=== PATIENT | female | born 1955 | race Caucasian/White ===

== ENCOUNTER 2016-10-28 19:03 | Emergency (ER) | payer OTHER ==
[2016-10-28 19:09] VITALS: BP 127/78
[2016-10-28] MEDS ORDERED: Tetan/Diph/Pertus SYR(Tdap)* 0.5 ML SYR(BOOSTRIX) use SYR IM ONE (19:41)
--- NOTE | 2016-10-28 20:11 | UC ---
Herb Contreras Alfonso, scribed for Kevon Osuna MD on 10/28/16 at 1935 . Laceration HPI - HPI Summary HPI Summary: This patient is a 61 year old F presenting to [facility] accompanied by with a chief complaint of scalp laceration which occurred at 1830 today. She states I hit my head on a kitchen door. The patient rates the pain 3/10 in severity. Symptoms aggravated by nothing. Symptoms alleviated by pressure and ice. PMHx of MS and hypothyroidism. Patients medications reviewed this visit. Patients allergies reviewed this visit. - History Of Current Complaint Chief Complaint: UCLaceration Stated Complaint: HEAD LACERATION Time Seen by Provider: 10/28/16 19:26 Hx Obtained From: Patient Laceration Location: Head - scalp Mechanism Of Injury: Blunt Trauma Onset/Duration: Sudden Onset, Lasting Minutes - 1830 Severity: Mild Pain Intensity: 3 Pain Scale Used: 0-10 Numeric Aggravating Factors: Nothing - Allergies/Home Medications Allergies/Adverse Reactions: Allergies Allergy/AdvReac Type Severity Reaction Status Date / Time No Known Allergies Allergy Verified 10/28/16 19:09 Home Medications: Home Medications Alendronate TAB (NF) [Fosamax TAB (NF)] 10 mg PO WEEKLY 10/28/16 [History Confirmed 10/28/16] PMH/Surg Hx/FS Hx/Imm Hx Endocrine History: Hypothyroidism Other Neurological History: MS - Surgical History Surgical History: Yes Surgery Procedure, Year, and Place: csection,DENTAL IMPLANT - Family History Known Family History: Negative: Cardiac Disease - Social History Alcohol Use: Rare Substance Use Type: None Smoking Status (MU): Never Smoked Tobacco - Immunization History Most Recent Tetanus Shot: UNSURE; THINKS UP TO DATE Review of Systems Constitutional: Negative Skin: Other - Scalp laceration. All Other Systems Reviewed And Are Negative: Yes Physical Exam Triage Information Reviewed: Yes Vital Signs: Initial Vital Signs Temp 95.8 F 10/28/16 19:06 Pulse 53 10/28/16 19:06 Resp 16 10/28/16 19:06 BP 127/78 10/28/16 19:06 Pulse Ox 100 10/28/16 19:06 Vital Signs Reviewed: Yes Eyes: Positive: Conjunctiva Clear ENT: Positive: Other: - There is a 4 cm superficial scalp laceration that is well approximated and not in need of closure. Neck exam: Normal Respiratory: Positive: Lungs clear, Normal breath sounds, No respiratory distress Cardiovascular: Positive: RRR, No Murmur Musculoskeletal: Positive: ROM Intact Neurological: Positive: Alert Psychological: Positive: Normal Response To Family Skin: Positive: Other - 4 cm scalp laceration Laceration Course/Dx - Course/Dx Course Of Treatment: 61 yr old female with 4 cm scalp laceration that is superficial. Will DC home in good condition. - Differential Dx - Laceration/Wound Provider Diagnoses: scalp laceration Discharge - Discharge Plan Condition: Good Disposition: HOME Patient Education Materials: Laceration (ED) Referrals: Lucie Marx MD [Primary Care Provider] - The documentation as recorded by the Herb delgadillo Alfonso accurately reflects the service I personally performed and the decisions made by Thao craft Walter, MD.
== END 2016-10-28 20:10 | disposition home or self-care (01) ==
LOC: UCEAST 19:03
DX: S01.01XA Laceration without foreign body of scalp, initial encounter (principal); W22.8XXA Striking against or struck by other objects, initial encounter; Y93.9 Activity, unspecified; Y92.000 Kitchen of unspecified non-institutional (private) residence as the place of occurrence of the external cause; E03.9 Hypothyroidism, unspecified; Z23 Encounter for immunization
CPT/HCPCS: 90471; 90715; 99211; G0010; G0463

== ENCOUNTER 2017-08-26 09:31 | Emergency (ER) | payer OTHER ==
[2017-08-26 09:48] VITALS: BP 167/104
[2017-08-26] MEDS ORDERED: Nitroglycerin TAB 0.4 MG* 0.4 MG TAB SL ONE (09:49)
[2017-08-26] MEDS ORDERED: Nitroglycerin TAB 0.4 MG* 0.4 MG TAB ONE (09:51)
[2017-08-26] MEDS ORDERED: Aspirin 81 mg CHEW TAB* 81 MG TAB.CHEW ONE (09:51)
[2017-08-26] MEDS ORDERED: NS 0.9% 1000 ML* 1,000 ML IV SCH (10:00)
[2017-08-26] MEDS ORDERED: Aspirin 81 mg CHEW TAB* 81 MG TAB.CHEW PO SCH (10:00)
--- NOTE | 2017-08-26 10:28 | UC ---
aJydon Contreras Gabriel, scribed for Enmanuel Segundo MD on 08/26/17 at 0952 . Cardiac HPI - HPI Summary HPI Summary: This patient is a 62 year old F presenting to [facility] [place] by her with a chief complaint of CP that began last night. The patient rates the pain 7 /10 in severity. Patient reports SOB and diaphoresis. Patient denies nausea, ABD pain, and LE pain. Pt states sx began after she ate a grapefruit. She states it felt like her typical GERD. She took tums last night with no relief and also nexium at 0500 this morning still with no relief. She reports it feeling like neck pain/tightness without radiation into her arms. Hx GERD and MS. No cardiac history or HTN. - History of Current Complaint Stated Complaint: HEART BURN Time Seen by Provider: 08/26/17 09:37 Hx Obtained From: Patient Onset/Duration: Lasting Days - 1, Still Present Timing: Constant Initial Severity: Severe Current Severity: Severe Pain Intensity: 7 Associated Signs & Symptoms: Positive: SOB, Diaphoresis - Allergy/Home Medications Allergies/Adverse Reactions: Allergies Allergy/AdvReac Type Severity Reaction Status Date / Time No Known Allergies Allergy Verified 08/26/17 10:09 PMH/Surg Hx/FS Hx/Imm Hx Endocrine History: Thyroid Disease Neurological History: Other Other Neurological History: MS Other History Of: Negative For: Anticoagulant Therapy - Surgical History Surgical History: Yes Surgery Procedure, Year, and Place: csection,DENTAL IMPLANT - Family History Known Family History: Negative: Cardiac Disease - Social History Lives: With Family Alcohol Use: Rare Substance Use Type: None Smoking Status (MU): Never Smoked Tobacco - Immunization History Most Recent Tetanus Shot: UNSURE; THINKS UP TO DATE Review of Systems Constitutional: Other - diaphoresis ENT: Other - neck pain Respiratory: Shortness Of Breath Cardiovascular: Chest Pain All Other Systems Reviewed And Are Negative: Yes Physical Exam - Summary Physical Exam Summary: General: well-appearing, mild pain distress Skin: warm, color reflects adequate perfusion, dry Head: normal Eyes: EOMI, ERIKA ENT: normal Neck: supple, nontender Respiratory: CTA, breath sounds present Cardiovascular: RRR Abdomen: soft, nontender Bowel: present Musculoskeletal: normal, strength/ROM intact Neurological: sensory/motor intact, A&O x3 Psychological: affect/mood appropriate Triage Information Reviewed: Yes Vital Signs: Initial Vital Signs Temp 96.8 F 08/26/17 09:34 Pulse 66 08/26/17 09:34 Resp 22 08/26/17 09:34 BP 167/104 08/26/17 09:34 Pulse Ox 98 08/26/17 09:34 Vital Signs Reviewed: Yes Diagnostics - EKG Cardiac Rate: NL - 0937 @ 61 BPM Cardiac Rhythm: Sinus: Normal - ST elevation anterior lead, flipped T wave in 3 Ectopy: None - Assessment/Plan Course Of Treatment: GIVEN ASA 324MG PO AND NTG SL IN CLINIC WITH DECREASED PAIN. CONTACTED ED, DR PEREZ VIEWED THE EKG. [facility]. - Clinical Impression Provider Diagnoses: CHEST PAIN Discharge - Sign-Out/Discharge Documenting (check all that apply): Discharge/Admit/Transfer - Discharge Plan Condition: Good Disposition: TRANS HIGHER LVL OF CARE FAC Referrals: Lucie Marx MD [Primary Care Provider] - - Billing Disposition and Condition Condition: GOOD Disposition: Trans Higher Lvl of Care Fac The documentation as recorded by the Jaydon delgadillo Gabriel accurately reflects the service I personally performed and the decisions made by me, Enmanuel Segundo MD.
== END 2017-08-26 10:02 | disposition short-term general hospital (02) ==
LOC: UCEAST 09:31
DX: R07.9 Chest pain, unspecified (principal)
CPT/HCPCS: 93005; 96360; 99213; A9270-GY; G0463

== ENCOUNTER 2017-08-26 10:22 | Inpatient (IN) | payer OTHER ==
[2017-08-26] MEDS ORDERED: Heparin for STEMI(*) 5,000 UNITS/ML 1 ML VIAL IV ONE ×2 (10:29→10:30)
[2017-08-26] MEDS ORDERED: Nitroglycerin TAB 0.4 MG* 0.4 MG TAB ONE (10:29)
[2017-08-26] MEDS ORDERED: Ticagrelor* 90 MG TAB PO ONE ×2 (10:30)
[2017-08-26] MEDS ORDERED: nitroGLYCERIN DRIP* 25,000 MCG in PREMIX* 0 ML IV ONE (10:30)
[2017-08-26] MEDS ORDERED: nitroGLYCERIN DRIP* 25,000 MCG/250 ML BTL ONE ×2 (10:30→10:45)
[2017-08-26] MEDS ORDERED: Nitroglycerin TAB 0.4 MG* 0.4 MG TAB SL ONE ×2 (10:32→10:34)
[2017-08-26] MEDS ORDERED: VERAPAMIL 2.5 MG/ML 2 ML VIAL ** 5 mg/2 ml ONE (10:44)
[2017-08-26] MEDS ORDERED: Heparin 2 UNITS/ML IVPREMIX* 2,000 ML IV ONE (10:44)
[2017-08-26] MEDS ORDERED: Heparin(*) 1000 UNIT/ML 10 ML VIAL CATH LAB IV ONE (10:44)
[2017-08-26] MEDS ORDERED: Iohexol 350 (CONTRAST) 200 ML MDV IV ONE (10:45)
[2017-08-26] MEDS ORDERED: Lidocaine 1% INJ* 10 MG/ML 30 ML SDV ONE (10:45)
[2017-08-26 10:57] LABS: ABS Basophils 0 10^3/ul (0-0.2); ABS Eosinophils 0.1 10^3/ul (0-0.6); ABS Lymphocytes 2.5 10^3/ul (1.0-4.8); ABS Monocytes 0.5 10^3/ul (0-0.8); ABS Neutrophils 3.1 10^3/ul (1.5-7.7); ABS Nucleated RBC 0 10^3/ul; Hematocrit 40 % (35-47); Hemoglobin 13.3 g/dl (12.0-16.0); Lymphocyte % 40.5 % (25-47); Mean Corpuscular HGB Conc 34 g/dl (31-36); Mean Corpuscular Hemoglobin 31 pg (27-31); Mean Corpuscular Volume 91 fL (80-97); Nucleated Red Blood Cells % 0; Platelet Count 322 10^3/ul (150-450); Red Blood Count 4.37 10^6/ul (4.00-5.40); Red Cell Distribution Width 13 % (10.5-15); White Blood Count 6.3 10^3/ul (3.5-10.8)
[2017-08-26] MEDS ORDERED: Midazolam* 1 MG/ML 10 ML VIAL (10 MG) ONE (10:59)
[2017-08-26] MEDS ORDERED: fentaNYL* 50 MCG/ML 2 ML VIAL (100 MCG VIAL) ONE ×2 (10:59→12:12)
[2017-08-26 11:18] LABS: INR 0.94 (0.77-1.02)
[2017-08-26 11:20] LABS: EGFR Non-African American 80.5 (>60)
[2017-08-26] MEDS ORDERED: NitroPRUSSide* 25 MG/ML 2 ML VIAL IVPB ONE (11:47)
[2017-08-26] MEDS ORDERED: Norepinephrine VIAL* 1 MG/ML 4 ML VIAL ONE (11:48)
[2017-08-26] MEDS ORDERED: Eptifibatide IV (Load dose)(*) 2 MG/ML 10 ml VIAL ONE (12:03)
[2017-08-26] MEDS ORDERED: NS 0.9% 1000 ML* 400 ML IV ONE (12:29)
[2017-08-26] MEDS ORDERED: Nitroglycerin TAB 0.4 MG* 0.4 MG TAB SL PRN (12:29)
[2017-08-26] MEDS ORDERED: Ondansetron INJ* 2 MG/ML VIAL IV PRN (12:29)
[2017-08-26] MEDS ORDERED: Zolpidem TAB* 5 MG PO PRN (12:29)
[2017-08-26 13:37] LABS: Urine Appearance Clear; Urine Blood Negative (Negative); Urine Color Straw; Urine Ketones Trace (Negative); Urine Protein Negative (Negative); Urine Specific Gravity > 1.060 (1.010-1.030); Urine Urobilinogen Negative (Negative)
--- NOTE | 2017-08-26 14:12 | ED ---
Louie Contreras Jacob, scribed for Liu Hall MD on 08/26/17 at 1119 . HPI Chest Pain - HPI Summary HPI Summary: Pt is a 62 y/o F brought in by EMS from [facility]. She states that she started to have a heavy feeling in her throat onsetting yesterday in the early evening. Today in the morning, she states that the pain moved to her chest. Pt describes chest as feeling heavy. She states that the pain progressively worsened throughout today and was rated 6/10 on triage. Per triage, she is experiencing heavy jaw pain and denies SOB and nausea. Pt took Tums and Nexium today. She was seen by EMS and sent to ED for EKG abnormality. Pt is A&Ox3, GCS is 15 on triage. [facility] provided 324 ASA and 1x nitro. Also at [facility], Pt was also given bolus of IV fluid in 20g IV in right wrist. Hx of GERD and MS. She denies Hx of CAD or HLD. FHx of CAD (father). - History of Current Complaint Time Seen by Provider: 08/26/17 10:23 Hx Obtained From: Patient Onset/Duration: Started Hours Ago, Still Present Current Severity: Moderate Pain Intensity: 6 Pain Scale Used: 0-10 Numeric - 6/10 Character: Heaviness Aggravating Factor(s): Nothing Alleviating Factor(s): Nothing Associated Signs and Symptoms: Positive: Chest Pain, Other: - heavy jaw pain. Negative: Shortness of Breath, Swelling - Allergy/Home Medications Allergies/Adverse Reactions: Allergies Allergy/AdvReac Type Severity Reaction Status Date / Time No Known Allergies Allergy Verified 08/26/17 10:09 Home Medications: Home Medications Alendronate Sodium [Fosamax-] 70 mg PO WEEKLY 08/26/17 [History Confirmed ] Esomeprazole(NF) [NEXium(NF)] 20 mg PO DAILY 08/26/17 [History Confirmed ] Interferon Beta-1A/Albumin [Avonex] 30 mcg IM WEEKLY 08/26/17 [History Confirmed 08/26/17] Levothyroxine TAB* [Synthroid TAB*] 25 mcg PO DAILY 08/26/17 [History Confirmed 08/26/17] PMH/Surg Hx/FS Hx/Imm Hx Endocrine/Hematology History: Reports: Hx Thyroid Disease - HYPOTHYROID Denies: Hx Diabetes Cardiovascular History: Denies: Hx Hypertension, Hx Pacemaker/ICD Respiratory History: Denies: Hx Asthma History: Denies: Hx Renal Disease Sensory History: Denies: Hx Hearing Aid Psychiatric History: Denies: Hx Panic Disorder - Surgical History Surgery Procedure, Year, and Place: csection,DENTAL IMPLANT Infectious Disease History: No Infectious Disease History: Denies: Traveled Outside the [place] in Last 30 Days - Family History Known Family History: Negative: Cardiac Disease - Social History Alcohol Use: Rare Substance Use Type: Reports: None Smoking Status (MU): Former Smoker Review of Systems Negative: Fever, Chills Negative: Erythema Negative: Sore Throat Positive: Chest Pain Negative: Shortness Of Breath, Cough Negative: Abdominal Pain, Vomiting, Nausea Negative: dysuria, hematuria Positive: Other - heavy jaw pain. Negative: Edema Negative: Rash Neurological: Other - NEGATIVE: dizziness All Other Systems Reviewed And Are Negative: Yes Physical Exam - Summary Physical Exam Summary: Constitutional: Well-developed, Well-nourished, Alert. (-) Distressed Skin: Warm, Dry HENT: Normocephalic; Atraumatic Eyes: Conjunctiva normal Neck: Musculoskeletal ROM normal neck. (-) JVD, (-) Stridor, (-) Tracheal deviation Cardio: Rhythm regular, rate normal, Heart sounds normal; Intact distal pulses; The pedal pulses are 2+ and symmetric. Radial pulses are 2+ and symmetric. (-) Murmur Pulmonary/Chest wall: Effort normal. (-) Respiratory distress, (-) Wheezes, (-) Rales Abd: Soft, (-), epigastric tenderness, (-) Distension, (-) Guarding, (-) Rebound Musculoskeletal: (-) Edema Lymph: (-) Cervical adenopathy Neuro: Alert, Oriented x3 Psych: Mood and affect Normal Triage Information Reviewed: Yes Vital Signs On Initial Exam: Initial Vitals Temp Pulse Resp BP Pulse Ox 97 F 60 18 167/90 100 08/26/17 10:24 08/26/17 10:24 08/26/17 10:24 08/26/17 10:24 08/26/17 10:24 Vital Signs Reviewed: Yes - Jovani Coma Scale Best Eye Response: 4 - Spontaneous Best Motor Response: 6 - Obeys Commands Best Verbal Response: 5 - Oriented Coma Scale Total: 15 Diagnostics - Vital Signs Vital Signs Temp Pulse Resp BP Pulse Ox 08/26/17 10:52 98.7 F 86 18 146/89 98 08/26/17 10:51 98.7 F 86 18 146/89 98 08/26/17 10:27 100 08/26/17 10:24 97 F 60 18 167/90 100 - Laboratory Lab Results: Lab Results 08/26/17 08/26/17 Range/Units 10:41 10:41 WBC 6.3 (3.5-10.8) 10^3/ul RBC 4.37 (4.00-5.40) 10^6/ul Hgb 13.3 (12.0-16.0) g/dl Hct 40 (35-47) % MCV 91 (80-97) fL MCH 31 (27-31) pg MCHC 34 (31-36) g/dl RDW 13 (10.5-15) % Plt Count 322 (150-450) 10^3/ul MPV 8.0 (7.4-10.4) um3 Neut % (Auto) 50.2 (38-83) % Lymph % (Auto) 40.5 (25-47) % [place] % (Auto) 7.8 H (0-7) % Eos % (Auto) 1.0 (0-6) % Baso % (Auto) 0.5 (0-2) % Absolute Neuts (auto) 3.1 (1.5-7.7) 10^3/ul Absolute Lymphs (auto) 2.5 (1.0-4.8) 10^3/ul Absolute Monos (auto) 0.5 (0-0.8) 10^3/ul Absolute Eos (auto) 0.1 (0-0.6) 10^3/ul Absolute Basos (auto) 0 (0-0.2) 10^3/ul Absolute Nucleated RBC 0 10^3/ul Nucleated RBC % 0 Blood Type A Positive Antibody Screen Pending Result Diagrams: 08/26/17 10:41 08/26/17 10:41 Lab Statement: Any lab studies that have been ordered have been reviewed, and results considered in the medical decision making process. 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 Today in the morning, she states that the pain moved to her chest, described as heavy, rated 6/10, progressively worsened throughout today. Per triage, she is experiencing heavy jaw pain and denies SOB and nausea. Pt took Tums and Nexium today. She was seen by EMS and sent to ED for EKG abnormality. Pt is A&Ox3, GCS is 15 on triage. [facility] provided 324 ASA and 1x nitro. Also at [facility], Pt was also given bolus of IV fluid in 20g IV in right wrist. During ED course, pt received Ticagrelor 180 mg PO, Heparin for STEMI, 4000 units, and NTG IV and SL. Bloodwork and EKG were ordered. EKG showed STEMI, APTT was >212.0 and Troponin I was 0.19 H. Pt was diagnosed with STEMI and admitted to [facility]. 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 Lee is currently catheterizing a Pt Time Discussed With Above Provider: 10:33 Instructed by Provider To: Other - Admitted - Critical Care Time Critical Care Time: 30-74 min - 45 minutes Discharge - Sign-Out/Discharge Documenting (check all that apply): Discharge/Admit/Transfer - admit - Discharge Plan Condition: Fair Disposition: ADMITTED TO [facility] documentation as recorded by the Louie delgadillo Jacob accurately reflects the service I personally performed and the decisions made by me, Liu Hall MD.
[2017-08-26] MEDS: Metoprolol Tartrate TAB* 25 MG PO SCH ×2 (16:07→21:18)
[2017-08-26] MEDS: Atorvastatin* 80 MG TAB PO SCH (16:08)
[2017-08-26] MEDS: Enoxaparin(*) 80 MG/0.8 ML SYR SUBCUT SCH (16:10)
[2017-08-26] MEDS ORDERED: Calcium Carbonate CHEW TAB* 500 MG (TUMS) PO PRN (21:02)
[2017-08-26] MEDS: CMC:Pantoprazole TAB (NF) 40 MG TAB PO SCH (21:20)
[2017-08-26] MEDS: Ticagrelor* 90 MG TAB PO SCH (21:21)
--- NOTE | 2017-08-26 21:29 | HP ---
CC: Dr. Marx; Marivel Lee MD HISTORY AND PHYSICAL: DATE OF ADMISSION: 08/26/17 PRIMARY CARE PHYSICIAN: Dr. Marx. HISTORY OF PRESENT ILLNESS: A 62-year-old woman presenting to the ER with acute anterior wall ST eliseo vation infarct. She has no previous cardiac history. Day prior to admission, she had discomfort in her throat in the evening, which persisted all night long. She thought it was due to reflux. This morning, she had t he same sore discomfort, but also developed the chest discomfort at around 0800 hours, it was very un comfortable. With it, she also had discomfort in her jaw, she presented to the ER. EKG at 0937 hour s showed J point and ST elevation in V2 through V4. Repeat EKG at 1021 showed a clearcut injury curr ent in V1 through V3. She has not had any exertional symptoms prior to presentation. She does have multiple sclerosis, whi ch limits her mostly by tingling and numbness in her fingers. PAST MEDICAL HISTORY: Multiple sclerosis, GERD, hypothyroidism. MEDICATIONS: Prehospital medications: 1. Synthroid 25 mcg daily. 2. Avonex 30 mcg IM weekly. 3. Nexium 20 mg daily. 4. Fosamax 70 mg weekly. She is not on aspirin. ALLERGIES: None to medications. SOCIAL HISTORY: She is . She is a nonsmoker. REVIEW OF SYSTEMS: General: No weight loss. No fevers. 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 GI: No p eptic ulcer disease or bleeding, she does not have aspirin intolerance. Heme: No history of maligna ncy or anemia. Circulatory: No history of claudication. Pulmonary: No cough. No hemoptysis. Rem ainder, all negative. PHYSICAL EXAMINATION VITAL SIGNS: When seen in the ER, BP 167/90, heart rate 60s. HEENT: Without xanthelasma, scleral injection, or jaundice, EOMs normal. Cranial nerves grossly int act. NECK: JVP and carotids normal. No bruits. LUNGS: Her lungs were clear. She was complaining of moderately severe chest pain. CARDIAC: [place] not palpable, regular rhythm, normal heart sounds, no gallop, murmur, or rub. ABDOMEN: Soft, nontender. No bruit, aorta not palpable. Liver not palpable. No ascites. Femoral pulses 2+. No bruits. EXTREMITIES: Radial pulses 2+. Pedal pulses 2+. No cyanosis, clubbing, or edema. PSYCH: Oriented and appropriate. SKIN: Warm and perfused. LABORATORY DATA: CBC unremarkable, BMP normal with creatinine 0.73, random blood sugar 142. IMAGING: EKG as above. IMPRESSION: Acute anterior wall ST elevation infarct, she underwent emergent catheterization. [id number]/[facility] #: [id number]
[2017-08-27] MEDS: Acetaminophen TAB* 325 MG PO PRN ×2 (03:49→23:37)
[2017-08-27 04:04] LABS: EGFR Non-African American 107.1 (>60)
[2017-08-27] MEDS: Metoprolol Tartrate TAB* 25 MG PO SCH ×4 (06:25→21:09)
[2017-08-27] MEDS: CMC:Pantoprazole TAB (NF) 40 MG TAB PO SCH (08:54)
[2017-08-27] MEDS: Aspirin 81 mg CHEW TAB* 81 MG TAB.CHEW PO SCH (08:54)
[2017-08-27] MEDS: Ticagrelor* 90 MG TAB PO SCH ×2 (08:54→21:09)
[2017-08-27] MEDS: Enoxaparin(*) 80 MG/0.8 ML SYR SUBCUT SCH (12:57)
[2017-08-27] MEDS: PTO: Dorzolamide/Timolol OPTH (NF) 10 ML BOT BOTH EYES SCH ×2 (13:45→21:11)
[2017-08-27] MEDS: Captopril TAB* 12.5 MG PO SCH ×2 (13:46→21:09)
[2017-08-27] MEDS: Atorvastatin* 80 MG TAB PO SCH (18:24)
[2017-08-28 06:41] LABS: EGFR Non-African American 92.1 (>60)
[2017-08-28] MEDS: Ticagrelor* 90 MG TAB PO SCH ×2 (08:16→19:48)
[2017-08-28] MEDS: Captopril TAB* 12.5 MG PO SCH ×4 (08:16→19:48)
[2017-08-28] MEDS: PTO: Dorzolamide/Timolol OPTH (NF) 10 ML BOT BOTH EYES SCH ×2 (08:17→19:51)
[2017-08-28] MEDS: Metoprolol Tartrate TAB* 25 MG PO SCH (08:17)
[2017-08-28] MEDS: Aspirin 81 mg CHEW TAB* 81 MG TAB.CHEW PO SCH (08:17)
[2017-08-28] MEDS: CMC:Pantoprazole TAB (NF) 40 MG TAB PO SCH (08:17)
[2017-08-28] MEDS: Metoprolol Tartrate TAB* 50 mg PO SCH ×2 (13:32→19:48)
[2017-08-28] MEDS: Enoxaparin(*) 80 MG/0.8 ML SYR SUBCUT SCH (13:32)
[2017-08-28] MEDS: Atorvastatin* 80 MG TAB PO SCH (17:18)
[2017-08-29] MEDS: Aspirin 81 mg CHEW TAB* 81 MG TAB.CHEW PO SCH (08:45)
[2017-08-29] MEDS: PTO: Dorzolamide/Timolol OPTH (NF) 10 ML BOT BOTH EYES SCH ×2 (08:45→22:29)
[2017-08-29] MEDS: Ticagrelor* 90 MG TAB PO SCH ×2 (08:45→22:24)
[2017-08-29] MEDS: CMC:Pantoprazole TAB (NF) 40 MG TAB PO SCH (08:45)
[2017-08-29] MEDS: Metoprolol Tartrate TAB* 50 mg PO SCH ×3 (08:45→22:24)
[2017-08-29] MEDS: Captopril TAB* 12.5 MG PO SCH (08:45)
--- NOTE | 2017-08-29 10:43 | ECHO ---
Patient: PADMINI MONTE [facility] Rec#: [id number] : 1955 Date: 08/29/2017 Age: 62y Height: 149.9 cm / 59.0 in Weight: 72.6 kg / 160.0 lbs Sex: F BSA: 1.7 Room#: 440 Admit Date#: 08/26/2017 Type: Inpatient Referring: Marivel Lee MD Reading: Simon Aguilar MD Electron Gun Inspector: Camila Padron RN RDCS CC: Lucie Marx MD Transthoracic Echocardiogram Indication: Anterior wall STEMI S/P PCI BP: 123/71 HR: 78 Rhythm: NSR Findings History: Multiple sclerosis, hypothyroidism, GERD, obesity Technical Comments: The study quality is fair. The study is technically limited due to patient body habitus. Left Ventricle: The left ventricular chamber size is normal. Septal wall hypertrophy is observed. There is increased basal septal hypertrophy noted without evidence of an increased gradient across the left ventricular outflow tract. There is a focal wall motion abnormality present. There is moderately decreased left ventricular systolic function. The estimated ejection fraction is 35-40%. Abnormal left ventricular diastolic filling is observed, consistent with impaired relaxation. The mid anterior, mid inferoseptal, apical anterior, and apical inferior wall segments are hypokinetic (score 2). The mid anteroseptal, and apical septal wall segments are akinetic (score 3). Overall wallmotion score index is 2.33 Left Atrium: The left atrial chamber size is normal. Right Ventricle: The right ventricle wall thickness is mildly increased. The right ventricular cavity size is normal. The right ventricular global systolic function is normal. Right Atrium: The right atrial cavity size is normal. Aortic Valve: The aortic valve is trileaflet. The aortic valve leaflets are mildly thickened. There is aortic annular calcification. There is a trace of aortic regurgitation. There is no evidence of aortic stenosis. Mitral Valve: The mitral valve leaflets are mildly thickened. There is mild mitral regurgitation. There is no evidence of mitral stenosis. Tricuspid Valve: The tricuspid valve leaflets are normal. There is mild tricuspid regurgitation. No pulmonary hypertension is noted. There is no tricuspid stenosis. Pulmonic Valve: The pulmonic valve appears normal. There is a trace pulmonic regurgitation. There is no pulmonic stenosis. Pericardium: There is no significant pericardial effusion. A pericardial fat pad is visualized. Aorta: There is no dilatation of the ascending aorta. There is no dilatation of the aortic arch. There is no dilation of the aortic root. Pulmonary Artery: The main pulmonary artery appears normal. Venous: The inferior vena cava appears normal in size. There is a greater than 50% respiratory change in the inferior vena cava dimension. Summary: There was not any prior study for comparison. Conclusions There is moderately decreased left ventricular systolic function. The estimated ejection fraction is 35-40%. The mid anterior, mid inferoseptal, apical anterior, and apical inferior wall segments are hypokinetic (score 2). The mid anteroseptal, and apical septal wall segments are akinetic (score 3). Abnormal left ventricular diastolic filling is observed, consistent with impaired relaxation. The right ventricular global systolic function is normal. There is a trace of aortic regurgitation. There is mild mitral regurgitation. There is mild tricuspid regurgitation. No pulmonary hypertension is noted. There is no significant pericardial effusion. Measurements Name Value Normal Range RVDdMajor (2D) 2.7 cm (2.2 - 4.4) RVAW (2D) 0.7 cm (0.2 - 0.5) RAd ISD 4CH 4 cm (3.4 - 4.9) RA (A4C)W 3.6 cm (2.9 - 4.6) IVSd (2D) 1.3 cm (0.6 - 1) LVPWd (2D) 0.9 cm (0.6 - 1) LVIDd (2D) 4 cm (3.6 - 5.4) LVIDs (2D) 2.3 cm - LV FS (2D) 42 % (25 - 45) Aortic Annulus 2.1 cm (1.4 - 2.6) Ao root diameter (2D) 3.1 cm (2.1 - 3.5) Ascending Ao 3.1 cm (2.1 - 3.4) Aortic arch 2.6 cm (1.8 - 3.4) LA dimension (AP) 2D 3.5 cm (2.3 - 3.8) LAd ISD 4CH 4.5 cm (2.9 - 5.3) LA ISD 4CH W 3.2 cm (2.5 - 4.5) Name Value Normal Range LA ESV SP 4CH (A/L) 25 ml - LA ESV SP 2CH (A/L) 30 ml - LA ESV BP (A/L) 27 ml - LA ESV BP (A/L) index 16.4 ml/m2 - LA ESV SP 4CH (MOD) 24 ml - LA ESV SP 2CH (MOD) 29 ml - Name Value Normal Range MV E-wave Vmax 0.58 m/sec - MV deceleration time 210 msec - MV A-wave Vmax 0.94 m/sec - MV E:A ratio 0.62 ratio - LV septal e' Vmax 0.05 m/sec - LV lateral e' Vmax 0.05 m/sec - LV E:e' septal ratio 11.6 ratio - LV E:e' lateral ratio 11.6 ratio - Name Value Normal Range AV Vmax 1.3 m/sec - AV VTI 29.8 cm - AV peak gradient 7.2 mmHg - AV mean gradient 4.3 mmHg - LVOT Vmax 0.97 m/sec - LVOT VTI 18.4 cm - LVOT peak gradient 3.8 mmHg - LVOT mean gradient 1.9 mmHg - NOEL Vmax 0.62 m/sec - Name Value Normal Range TR Vmax 2.2 m/sec - TR peak gradient 19 mmHg - RAP 3 mmHg - RVSP 22 mmHg - IVC diameter 1 cm - Name Value Normal Range PV Vmax 1.1 m/sec - Wallmotion BAS Not Seen BA Not Seen BAL Not Seen LESA Not Seen BI Not Seen BIS Not Seen MAS Akinetic MA Hypokinetic MAL Not Seen MIL Not Seen FL Not Seen MIS Hypokinetic Akinetic AA Hypokinetic AL Not Seen AI Hypokinetic APEX Hypokinetic
[2017-08-29] MEDS: Captopril TAB* 25 MG PO SCH ×2 (13:11→22:25)
[2017-08-29] MEDS: Enoxaparin(*) 80 MG/0.8 ML SYR SUBCUT SCH (13:11)
--- NOTE | 2017-08-29 14:04 | CATH ---
CC: Dr. Marx; Dr. Lee STENT REPORT: DATE OF PROCEDURE: 08/26/17 PRIMARY CARE PHYSICIAN: Dr. Marx. PROCEDURE: Right radial artery access, bilateral selective coronary cineangiography, left heart cath eterization, left ventriculography, stent placement LAD 2.5 x 12 Synergy drug-eluting stent, overlapp ing 2.5 x 38 Synergy drug-eluting stent, high pressure post dilatation. IC Nipride. HISTORY: A 62-year-old woman presenting with anterior ST-elevation infarct, has been symptomatic sin ce the prior evening. PROCEDURE ACCESS: Right radial artery sheath 6F slender. MEDICATIONS: 1. Subcu lidocaine. 2. IV Versed. 3. IV fentanyl. 4. Heparin and IV nitroglycerin started in ER. 5. Radial cocktail nitroglycerin 300 mcg, verapamil 3 mg IA. 6. Additional heparin 4000 units, 2000 units, 4000 units, IC nitroglycerin 200 mcg, IC Nipride 1000 mcg post revascularization. 7. Levophed boluses 64 mcg, 32 mcg for blood pressure support. 8. Double bolus IV Integrilin. DIAGNOSTIC CATHETER: 5F TIG4, guiding catheter 6 FLBU 3.5, wire 14 BMW. After diagnostic angiography, the LAD occlusion was approached. It was easily crossed with the BMW w jadiel. Predilatation with 2.5 x 12 mm balloon established patency, and demonstrated extensive multi-lo cation stenoses in the LAD. The most distal severe stenosis was then stented with a 2.5 x 12 Synergy drug-eluting stent 11 atmospheres 12 seconds, postdilated with a 2.5 x 12 NC balloon 16 atmospheres 30 seconds. A 2.5 x 38 Synergy drug-eluting stent was then advanced more proximally, deployed at 11 atmospheres 17 seconds, then postdilated with an NC balloon with a 2.5 x 30 mm NC balloon 16 atmosphe res 30 seconds with 2 overlapping inflations. Because of the diminished flow and persisting apical oc clusion, IC nitroglycerin was given, as was total of 1000 mcg of IC Nipride with boluses of Levophed to maintain blood pressure. The apical LAD was probed with a wire and the postdilatation balloon, bu t persisted occluded, was too small for aspiration thrombectomy or stenting. A 5F radial pigtail was then used for an LV gram. HEMODYNAMICS: The initial BP 117/80, LV 106/12-22, no aortic valve gradient on pullback. ANGIOGRAPHY: RCA. The RCA is moderate, dominant, has diffuse scattered plaquing without any signific ant focal stenosis. It supplies a jilvy-aj-xweoobxc PDA. Left main. The left main is short, has no stenosis. LAD. The LAD is moderate supplies a zifql-wp-nkwgovzq first diagonal which has 40% stenosis, referen ce diameter 2 to 2.5 mm. The LAD is then occluded. Circumflex. The circumflex is moderate, not dominant, has diffuse plaquing, supplies a small first m arginal, a moderate second marginal, which has diffuse nonobstructive plaquing in its proximal portio n. In its mid part, it bifurcates, at the bifurcation, there is a 75% to 80% bifurcation stenosis, r eference diameter distally is less than 2 mm. There are jecp-bq-mwbe collaterals to apical LAD. The circumflex AV continuation has a tubular stenosis maximal narrowing 80% before a moderate caliber sm all distribution posterolateral branch. This is stentable if required. After LAD reperfusion, it is noted to have extensive stenosis at multiple locations in the mid portio n. The apical LAD is occluded, small in caliber. After LAD stent placement, postdilatation, IC nitr oglycerin and Nipride, the LAD has AYLIN-3 flow, has 30% to 40% stenosis after the first septal, which was not treated. The apical LAD remains occluded. There is a visible myocardial blush. There is n o residual stenosis in the stented segments. LV GRAM: The distal half of the anterolateral wall, apex, and infraapical segments are akinetic, vis ually estimated LVEF 30%. CONCLUSION: 1. Extensive coronary atherosclerosis with significant stenosis in the circumflex system, OM1 is lik john too small for revascularization. The mid circumflex is potentially stentable if required but sub tends a relatively small distribution posterolateral branch. Culprit LAD occlusion successfully tao scularized with drug- eluting stents, adjunctive IC nitroglycerin and Nipride. Apical LAD persists o ccluded, too small for revascularization. 2. Severe left ventricular systolic dysfunction. 3. Elevated LVEDP, otherwise normal left-sided hemodynamics. 4. Successful right radial artery access. [id number]/[facility] #: [id number]
[2017-08-29] MEDS: Atorvastatin* 80 MG TAB PO SCH (16:14)
[2017-08-30 07:34] VITALS: BP 103/69
[2017-08-30] MEDS: Metoprolol Tartrate TAB* 50 mg PO SCH (08:18)
[2017-08-30] MEDS: CMC:Pantoprazole TAB (NF) 40 MG TAB PO SCH (08:18)
[2017-08-30] MEDS: PTO: Dorzolamide/Timolol OPTH (NF) 10 ML BOT BOTH EYES SCH (08:18)
[2017-08-30] MEDS: Aspirin 81 mg CHEW TAB* 81 MG TAB.CHEW PO SCH (08:18)
[2017-08-30] MEDS: Ticagrelor* 90 MG TAB PO SCH (08:18)
[2017-08-30] MEDS ORDERED: Lisinopril TAB* 10 MG PO SCH ×2 (09:00)
--- NOTE | 2017-08-30 11:04 | DS ---
CC: Dr. Marx; Dr. Lee DISCHARGE SUMMARY: DATE OF ADMISSION: 08/26/17 DATE OF DISCHARGE: 08/30/17 PRIMARY CARE PHYSICIAN: Dr. Marx. DISCHARGE DIAGNOSES: 1. Anterior ST-elevation infarct. 2. Left ventricular systolic dysfunction, acute. 3. Multiple sclerosis. 4. Hypothyroidism. 5. Gastroesophageal reflux disease. CONDITION ON DISCHARGE: Stable. PROCEDURES: Cardiac cath, right radial approach, 08/26/17; stent placement to LAD, 2.5 x 12 Synergy drug-eluting stent, 2.5 x 38 Synergy drug-eluting stent, LAD; echocardiogram; telemetry. DISCHARGE MEDICATIONS: 1. Lipitor 80 mg daily. 2. Lisinopril 10 mg daily. 3. Toprol-XL 100 mg daily. 4. Nitroglycerin 0.4 sublingual p.r.n. 5. Brilinta 90 mg b.i.d. 6. Aspirin 81 mg daily. 7. Cosopt eye drops b.i.d. 8. Fosamax 70 mg weekly. 9. Nexium 20 mg daily. 10. Avonex 30 mcg weekly. 11. Synthroid 25 mcg daily. FOLLOWUP: With Dr. Marx as before; Dr. Lee risk check, MOB-101, 09/05/17, at 10:20 a.m. ACTIVITY: No strenuous exertion for 1 week. Return to work on 09/19/17. Cardiac rehab. DIET: Low fat, low cholesterol, cardiac. HISTORY: See H and P. LABORATORY STUDIES: Post PCI BMP remained stable with creatinine of 0.65. Troponin peaked at 17.06. Her hemoglobin A1c was slightly elevated at 5.8. LDL was 159. EKG post revascularization developed changes with an apical infarct with inferior and precordial Q wa ves, with post infarct ST-T wave changes. Echocardiogram, 08/29/17, showed improved in LVEF from presentation with estimated EF of 35% to 40% w ith an anteroapical wall motion abnormality. HOSPITAL COURSE: She presented with an anterior ST-elevation infarct, underwent catheterization and revascularization of the LAD with 2 drug-eluting stents, had an extensive plaque burden. Moderately severe stenosis in the circumflex was not treated, subtends a relatively small posterolateral, will b e evaluated with an outpatient stress test. She has branch disease in the first marginal not amenabl e to revascularization. Post revascularization, she persisted with apical LAD occlusion. She had a relatively small infarct by enzymes, she had an extensive anteroapical wall motion abnormality at pre sentation, which hopefully will improve given that her infarct size is limited based on troponins. R epeat echo measurement of EF showed improvement, she does not require LifeVest. She tolerated gradua lly up-titrated doses of beta blockade and ZANDER inhibitor therapy, dual-antiplatelet therapy. She has had 1 episode of throat discomfort with ambulation. She has not had heart failure symptoms, palpita tions, arrhythmias. She has not had recurrence of chest pain. She has full followup arrangements. On the day of discharge, she is clinically stable with unremarkable exam. [id number]/[facility] #: [id number]
== END 2017-08-30 10:50 | disposition home or self-care (01) | DRG 247 ==
LOC: ED 10:22 → CHICATH 10:37 → ICU 12:16 → MEDTELE 08-27 14:05
PROVIDERS: ADMIT Internal Medicine Cardiovascular Disease; ATTEND Internal Medicine Cardiovascular Disease
PROC: B2111ZZ Fluoroscopy of Multiple Coronary Arteries using Low Osmolar Contrast (ICD-10-PCS; 2017-08-26)
PROC: 4A023N7 Measurement of Cardiac Sampling and Pressure, Left Heart, Percutaneous Approach (ICD-10-PCS; 2017-08-26)
PROC: B2151ZZ Fluoroscopy of Left Heart using Low Osmolar Contrast (ICD-10-PCS; 2017-08-26)
PROC: 3E033XZ Introduction of Vasopressor into Peripheral Vein, Percutaneous Approach (ICD-10-PCS; 2017-08-26)
PROC: 027035Z Dilation of Coronary Artery, One Artery with Two Drug-eluting Intraluminal Devices, Percutaneous Approach (ICD-10-PCS; principal; 2017-08-26 10:30)
DX: I21.09 ST elevation (STEMI) myocardial infarction involving other coronary artery of anterior wall (principal); E03.9 Hypothyroidism, unspecified; K21.9 Gastro-esophageal reflux disease without esophagitis; G35 Multiple sclerosis; I25.10 Atherosclerotic heart disease of native coronary artery without angina pectoris; R40.2362 Coma scale, best motor response, obeys commands, at arrival to emergency department; R40.2142 Coma scale, eyes open, spontaneous, at arrival to emergency department; R40.2252 Coma scale, best verbal response, oriented, at arrival to emergency department; Z79.82 Long term (current) use of aspirin; Z79.02 Long term (current) use of antithrombotics/antiplatelets; Z82.49 Family history of ischemic heart disease and other diseases of the circulatory system; Z87.891 Personal history of nicotine dependence
CPT/HCPCS: 36415; 80048; 80053; 81003; 82550; 82553; 83036; 83605; 83721; 83874; 83880; 84484; 85025; 85610; 85730; 86850; 86900; 86901; 87641; 93005; 93306; 96360; 99156; 99157; 99213; 99285; A9270-GY; C1725; C1769; C1876; C1887; C9606-LD; G0463; J1327; J1644; J1650; J2250; J3010

== ENCOUNTER 2017-09-10 11:45 | Emergency (ER) | payer OTHER ==
[2017-09-10] MEDS ORDERED: Aspirin 81 mg CHEW TAB* 81 MG TAB.CHEW PO ONE (11:55)
--- OUTSIDE RECORDS SUMMARY | 2017-09-10 11:56 | XMS REPORT ---
:1955 External Reference #:[id number] Author Organization [employer] Address [address] [place] [address] Phone [phone] Care Team Providers Name Role Phone Lucie Marx MD Primary Care Physician Unavailable Payers Type Date Identification Numbers Payment Provider Subscriber Commercial Policy Number: [id number] [employer] Griselda Ji Group Number: [id number] [id number] PayID: [id number] [place] [address] Problems Date Description Provider Status Onset: 04/23/2014 Multiple sclerosis Joel Yeung M.D. 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 /2017 s every day MD Jesus, STEPHANIE, ELIECER Toprol XL 08/30 Active Tablets 100mg 30tab 1 by mouth Marcis T. /2017 ER 24HR s every day MD Lee FACC, ELIECER Nitrostat 08/30 Active Tablets 0.4mg 30tab one sl q5min up Marcmoody T. Sub s to 3 doses as willis Lee MD, FACC, [facility] Brilinta 08/30 Active Tablets 90mg 180ta 1 tab by mouth Marcis T. /2017 bs twice a day MD Lee FACC, [facility] Aspirin 81 Low 08/30 Active Chewtabs 81mg 1 by mouth Marcmoody TJe Dose /2018 every day MD Lee FACC, [facility] Avonex 05/04 Active Kit 30mcg 12uni pen Joel S. ts intramuscular andressa Yeung; include M.DJe all ancillary supplies Levothyroxine Active Tablets 25mcg 90tab 1 po qd Unknown Sodium /0000 s Nexium Active 20mg 1 cap po daily Unknown /0000 Lumigan Active Solution 0.01% 1 drop each eye Unknown /0000 daily Fosamax Active Tablets 70mg 1 by mouth Unknown /0000 qwkly Cosopt PF Active Solution 22.3-6.8m 1 drop to both Unknown /0000 g/ml eyes twice a day Atorvastatin 08/30 Hx Tablets 80mg 90tab 1 by mouth Marivel Perkins Calcium s every day Mekhi Lee MD, FACC, 09/02 [facility] Avonex Pen 05/04 Hx Kit 30mcg/0.5 4unit Inject once Joel S. ML s weekly as Mekhi Yeung MTangela 05/04 Avonex 05/01 Hx Kit 30mcg/0.5 12uni inject 30mcg Chloe ML ts (0.5ml/one Cowdery, - prefilled M.D. 05/04 syringe) intramuscularly once weekly Vital Signs Date Vital Result Comment 09/05/2017 Height 59 inches 4'11" Weight 155.00 lb w shoes Heart Rate 66 /min BP Systolic Sitting 114 mmHg lue lg cuff BP Diastolic Sitting 78 mmHg lue lg cuff BP Systolic Standing 114 mmHg lue lg cuff BP Diastolic Standing 78 mmHg lue lg cuff Respiratory Rate 18 /min BMI (Body Mass Index) 31.3 kg/m2 Ejection Fraction 35-40% echo 08/29/17 01/18/2017 Height 59 inches 4'11" Weight 150.00 lb Heart Rate 68 /min BP Systolic Sitting 126 mmHg BP Diastolic Sitting 80 mmHg Respiratory Rate 16 /min BMI (Body Mass Index) 30.3 kg/m2 12/22/2015 Height 59 inches 4'11" Weight 155.00 lb Heart Rate 72 /min BP Systolic Sitting 118 mmHg BP Diastolic Sitting 76 mmHg BMI (Body Mass Index) 31.3 kg/m2 05/23/2015 Height 59 inches 4'11" Weight 160.00 lb Heart Rate 64 /min BP Systolic Sitting 120 mmHg BP Diastolic Sitting 80 mmHg Respiratory Rate 14 /min BMI (Body Mass Index) 32.3 kg/m2 10/15/2014 Height 59 inches 4'11" Weight 158.00 lb Heart Rate 56 /min BP Systolic Sitting 120 mmHg BP Diastolic Sitting 68 mmHg Respiratory Rate 16 /min BMI (Body Mass Index) 31.9 kg/m2 04/23/2014 Height 59 inches 4'11" Heart Rate 72 /min BP Systolic Sitting 118 mmHg BP Diastolic Sitting 76 mmHg Respiratory Rate 16 /min 04/10/2013 Heart Rate 64 /min BP Systolic Sitting 124 mmHg BP Diastolic Sitting 78 mmHg Respiratory Rate 12 /min Results Test Date Test Result H/L Range Note CBC Auto Diff 05/27/2015 White Blood Count 5.1 10^3/uL 3.5-10.8 Red Blood Count 4.40 10^6/uL 4.0-5.4 Hemoglobin 13.5 g/dL 12.0-16.0 Hematocrit 40 % 35-47 Mean Corpuscular Volume 91 fL 80-97 Mean Corpuscular Hemoglobin 31 pg 27-31 Mean Corpuscular HGB Conc 34 g/dL 31-36 Red Cell Distribution Width 13 % 10.5-15 Platelet Count 335 10^3/uL 150-450 Mean Platelet Volume 8 um3 7.4-10.4 Abs Neutrophils 2.0 10^3/uL 1.5-7.7 Abs Lymphocytes 2.5 10^3/uL 1.0-4.8 Abs Monocytes 0.4 10^3/uL 0-0.8 Abs Eosinophils 0.1 10^3/uL 0-0.6 Abs Basophils 0 10^3/uL 0-0.2 Abs Nucleated RBC 0 10^3/uL Granulocyte % 40.3 % 38-83 Lymphocyte % 48.8 % High 25-47 Monocyte % 7.7 % 1-9 Eosinophil % 2.2 % 0-6 Basophil % 1.0 % 0-2 Nucleated Red Blood Cells % 0.1 Comp Metabolic Panel 05/27/2015 Sodium 138 mmol/L 133-145 Potassium 4.3 mmol/L 3.5-5.0 Chloride 107 mmol/L 101-111 Co2 Carbon Dioxide 23 mmol/L 22-32 Anion Gap 8 mmol/L 2-11 Glucose 115 mg/dL High 70-100 Blood Urea Nitrogen 12 mg/dL 6-24 Creatinine 0.79 mg/dL 0.51-0.95 BUN/Creatinine Ratio 15.2 8-20 Calcium 9.2 mg/dL 8.6-10.3 Total Protein 6.8 g/dL 6.4-8.9 Albumin 4.1 g/dL 3.2-5.2 Globulin 2.7 g/dL 2-4 Albumin/Globulin Ratio 1.5 1-3 Total Bilirubin 0.40 mg/dL 0.2-1.0 Alkaline Phosphatase 84 U/L 34-104 Alt 19 U/L 7-52 Ast 16 U/L 13-39 Egfr Non- 74.2 >60 Egfr 95.5 >60 1 Lipid Profile (Trig/Chol/HDL) 05/27/2015 Triglycerides 153 mg/dL 2 Cholesterol 230 mg/dL 3 HDL Cholesterol 50.0 mg/dL 4 LDL Cholesterol 149 mg/dL 5 1 Because ethnic data is not always readily available, this report includes an eGFR for both -Americans and non- Americans. The National Kidney Disease Education Program (NKDEP) does not endorse the use of the MDRD equation for patients that are not between the ages of 18 and 70, are , have extremes of body size, muscle mass, or nutritional status, or are non- or non-. According to the National Kidney Foundation, irrespective of diagnosis, the stage of the disease is based on the level of kidney function: Stage Description GFR(mL/min/1.73 m(2)) 1 Kidney damage with normal or decreased GFR 90 2 Kidney damage with mild decrease in GFR 60-89 3 Moderate decrease in GFR 30-59 4 Severe decrease in GFR 15-29 5 Kidney failure <15 (or dialysis) 2 Desirable <150 Borderline high 150-199 High 200-499 Very High >500 3 Desirable <200 Borderline high 200-239 High >239 4 Low <40 Desirable: 40-60 High: >60 5 Desirable: <100 mg/dL Near Optimal: 100-129 mg/dL Borderline High: 130-159 mg/dL High: 160-189 mg/dL Very High: >189 mg/dL Procedures Date CPT Code Description Status Comment 09/05/2017 02046 EKG Tracing & Interpretation Completed 08/27/1999 Diabetic Retinal Eye Exam Completed Document: 08/27/99 - Consult Ophthalmology/Mauricio Encounters Type Date Location Provider CPT E/M Dx Office Visit 01/18/2017 8:30a [facility] Joel Yeung, [address] G35 [facility] M.D. Z79.899 Office Visit 12/22/2015 9:00a [facility] Joel Yeung [address]43[address] G35 M.D. Z79.899 Office Visit 05/23/2015 10:45a [facility] Joel Yeung, [address] [facility] M.D. Office Visit 10/15/2014 9:45a [facility] Joel Yeung, [id number] 340 [facility] M.D. Office Visit 04/23/2014 9:45a [facility] Joel Yeung [address] 340 [facility] M.D. Office Visit 04/10/2013 9:45a [facility] Joel Yeung, [address] 340 [facility] M.D. Office Visit 04/12/2012 10:00a [facility] Joel Yeung, [address] 340 [facility] [place] M.DJe Plan of Care Future Appointment(s):09/30/2017 10:00 am - Simon Aguilar M.D. at [facility]01/24/2018 8:30 am - Joel Yeung M.D. at [facility]
--- OUTSIDE RECORDS SUMMARY | 2017-09-10 11:56 | XMS REPORT ---
:1955 External Reference #:[id number] Author Organization [employer] Address [address] [place] [address] Phone [phone] Care Team Providers Name Role Phone Lucie Marx MD Primary Care Physician Unavailable Payers Type Date Identification Numbers Payment Provider Subscriber Commercial Policy Number: [id number] [employer] Griselda Ji Group Number: [id number] [id number] PayID: [id number] [place] [address] Problems Date Description Provider Status Onset: 04/23/2014 Multiple sclerosis Joel Yeung M.D. Active Social History Type Date Description Comments ETOH Use Rarely consumes alcohol Smoking Patient is a former smoker Allergies, Adverse Reactions, Alerts Date Description Reaction Status Severity Comments 04/10/2013 NKDA active Medications Medication Date Status Form Strength Qnty SIG Indications Ordering Provider Avonex 05/04 Active Kit 30mcg 12uni pen ts intramuscular andressa Yeung; include Thomas all ancillary supplies Levothyroxine 00 Active Tablets 25mcg 90tab 1 po qd Unknown Sodium /0000 s Nexium Active 1 cap po daily Unknown /0000 Lumigan 00 Active Solution 0.01% 1 drop each eye Unknown /0000 daily Fosamax 00 Active Tablets 70mg 1 by mouth Unknown /0000 qwkly Avonex Pen 05/04 Hx Kit 30mcg/0.5 4unit Inject once Joel S. ML s weekly as Gamal, - directed M.D. 05/04 Avonex 05/01 Hx Kit 30mcg/0.5 12uni inject 30mcg ML ts (0.5ml/one Emely, - prefilled M.D. 05/04 syringe) intramuscularly once weekly Vital Signs Date Vital Result Comment 01/18/2017 Height 59 inches 4'11" Weight 150.00 [...] Procedures Date CPT Code Description Status Comment 08/27/1999 Diabetic Retinal Eye Exam Completed Document: 08/27/99 - Consult Ophthalmology/Mauricio Encounters Type Date Location Provider CPT E/M Dx Office Visit 01/18/2017 8:30a [facility] Joel Yeung [address] [facility] Thomas Z79.899 Office Visit 12/22/2015 9:00a [facility] Joel Yeung [address]16[address] G35 Thomas Z79.899 Office Visit 05/23/2015 10:45a [facility] Joel Yeung [address] [facility] [employer] M.DJe Office Visit 10/15/2014 9:45a [facility] Joel Yeung, [address] 340 [facility] [employer] M.DJe Office Visit 04/23/2014 9:45a [facility] Joel Yeung [address] 340 [facility] [employer] M.DJe Office Visit 04/10/2013 9:45a [facility] Joel Yeung [address] 340 [facility] [employer] MJeDJe Office Visit 04/12/2012 10:00a [facility] Joel Yeung [address] 340 [facility] Thomas Plan of Care Future Appointment(s):09/05/2017 10:40 am - Marivel Lee MD, FACC, [facility] [place] [place] at [facility] [place]2018 8:30 am - Joel Yeung M.D. 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
--- NOTE | 2017-09-10 12:06 | ED ---
HPI Chest Pain - HPI Summary HPI Summary: A 62 y/o female presents to ED c/o left-sided intermittent chest discomfort. According to the patient, she has exhibited chest pressure since yesterday, 09/09. Additionally c/o LUQ and under breast "gas pain". She describes the chest pressure as "heaviness" on the left side and it is more of an annoyance than anything else. The patient stated, "it never got to where it is truly painful, just discomfort". Currently, the discomfort has subsided, however she noted that the discomfort on arrival was 2-3/10. She additionally noted that intermittent episodes last approximately an hour. She took NTG (1, 0.4 mg) for the discomfort, however it took a half hour to alleviate her symptoms. Pt denies any SOB, headache, abdominal pain, nausea, vomiting, fever, cough, leg pain or swelling, however has dizziness, lightheadedness, and diarrhea (in the morning). Sitting helps alleviate dizziness and lightheadedness. She noted that she recently had two cardiac stents put in place (15 days ago, 08/26/2017). The patient noted that she had a heart attack [place]I on 08[place]26/[place] [facility] [place] however the discomfort she feels today is not the same feeling as the STEMI. Pt has been taking her Brilinta and ASA as directed since the catheterization and has not missed any doses. Patient has also been taking all her usual medications such as Avonex (interferon) once per week for her MS and is not on any steroids. She takes medications for her hypertension, glaucoma and GERD. PMHx of NM on August 26 2017, Multiple Sclerosis, Caesarian section and Catheterization (right radial) [facility] [place]/26/[place], Dr. Lee. FHx of angioplasty and high blood pressure. No known allergies to medications. - History of Current Complaint Chief Complaint: EDChestPainROMI Time Seen by Provider: 09/10/17 11:55 Hx Obtained From: Patient, Family/Advertising Inserter - is Kaleb., Medical Records Onset/Duration: Started Days Ago - 09/09/2017 ,1 day ago, Still Present - Upon arrival to ED, currently has subsided Timing: Intermittent - Episodes lasting up to 1 hour, Lasting Days Initial Severity: Mild Current Severity: Mild Pain Intensity: 3 Pain Scale Used: 0-10 Numeric Chest Pain Location: Discrete at: - left-sided Chest Pain Radiates: No Character: Pressure/Squeezing - "heaviness" Aggravating Factor(s): Nothing Alleviating Factor(s): NTG 123 Associated Signs and Symptoms: Positive: Dizziness, Lightheadedness, Other: - Diarrhea, which pt attributes to lipitor, new medication for her. Negative: Chest Pain, Headaches, Shortness of Breath, Fever, Nausea, Cough, Abdominal Pain , Calf Pain/Swelling, Vomiting - Risk Factors AMI/ACS Risk Factors: Myocardial Infarction - Additional Pertinent History Primary Care Physician: VIN - Allergy/Home Medications Allergies/Adverse Reactions: Allergies Allergy/AdvReac Type Severity Reaction Status Date / Time No Known Allergies Allergy Verified 09/10/17 11:50 PMH/Surg Hx/FS Hx/Imm Hx Previously Healthy: No Endocrine/Hematology History: Reports: Hx Thyroid Disease - HYPOTHYROID Denies: Hx Anticoagulant Therapy, Hx Blood Disorders, Hx Blood Transfusions, Hx Bone Marrow Disease, Hx Diabetes, Hx Systemic Lupus Erythematosus, Hx Sickle Cell Disease, Hx Anemia, Hx Unexplained Bleeding, Other Endocrine/Hematological Disorders Cardiovascular History: Reports: Hx Coronary Artery Disease, Hx Myocardial Infarction - STEMI 08/26/17 with stents, [facility] Denies: Hx Hypertension, Hx Pacemaker/ICD Respiratory History: Denies: Hx Asthma History: Denies: Hx Renal Disease Sensory History: Reports: Hx Contacts or Glasses Denies: Hx Cataracts, Hx Eye Injury, Hx Eye Prosthesis, Hx Glaucoma, Hx Legally Blind, Hx Macular Degeneration, Hx Vision Problem, Hx Deafness, Hx Hearing Aid, Hx Hearing Problem, Other Sensory Impairments Opthamlomology History: Reports: Hx Contacts or Glasses Denies: Hx Cataracts, Hx Eye Injury, Hx Eye Prosthesis, Hx Glaucoma, Hx Legally Blind, Hx Macular Degeneration, Hx Vision Problem, Other Sensory Impairments Neurological History: Reports: Other Neuro Impairments/Disorders - multiple sclerosis Psychiatric History: Denies: Hx Panic Disorder - Surgical History Surgery Procedure, Year, and Place: csection,DENTAL IMPLANT Hx Anesthesia Reactions: No Infectious Disease History: No Infectious Disease History: Denies: Traveled Outside the [place] in Last 30 Days - Family History Known Family History: Positive: Hypertension, Other - Angioplasty Negative: Cardiac Disease - Social History Lives: With Family Alcohol Use: None Substance Use Type: Reports: None Smoking Status (MU): Former Smoker Type: Cigarettes Have You Smoked in the Last Year: No Review of Systems Negative: Fever Positive: Other - POSITIVE: Chest pressure. Negative: Chest Pain Negative: Shortness Of Breath, Cough Positive: Diarrhea. Negative: Abdominal Pain, Vomiting, Nausea Positive: Other - NEGATIVE: Leg pain, calf tenderness. Negative: Edema - Leg Skin: Negative Neurological: Other - POSITIVE: Dizziness, lightheadedness Negative: Headache Psychological: Normal All Other Systems Reviewed And Are Negative: Yes Physical Exam - Summary Physical Exam Summary: Appearance: Well-appearing, moderate pain distress, well-nourished, complains of 2/10 chest discomfort. Skin: Warm, color reflects adequate perfusion, dry Head: Normal Head/Face inspection, atraumatic Eyes: Conjunctiva clear ENT: Normal inspection Neck: Supple, no nodes, no JVD Respiratory: Lungs clear, normal breath sounds, no respiratory distress Cardio: RRR, No murmur, pulses normal, brisk capillary refill, chest pain is not reproducible Abdomen: Soft, nontender Bowel sounds: Present Musculoskeletal: Strength Intact/ROM intact, no calf tenderness, no edema, radial artery with good pulse no ecchymosis or swelling at site of catheterization. Psychological: Normal Neuro: Alert, muscle tone normal, no focal deficit Triage Information Reviewed: Yes Vital Signs On Initial Exam: Initial Vitals Temp Pulse Resp BP Pulse Ox 96.9 F 75 17 121/83 98 09/10/17 11:45 09/10/17 11:45 09/10/17 11:45 09/10/17 11:45 09/10/17 11:45 Vital Signs Reviewed: Yes Diagnostics - Vital Signs Vital Signs Temp Pulse Resp BP Pulse Ox 09/10/17 11:45 96.9 F 75 17 121/83 98 - Laboratory Result Diagrams: 09/10/17 12:06 09/10/17 12:03 Lab Statement: Any lab studies that have been ordered have been reviewed, and results considered in the medical decision making process. - Radiology CXR Xray Interpretation: No Acute Changes Radiology Interpretation Completed By: Radiologist - No radiographic evidence for acute cardiopulmonary abnormality on this portable chest x-ray. ED physician reviewed this radiology report. - EKG 1201 Cardiac Rate: NL - 63 BPM EKG Rhythm: Sinus Rhythm ST Segment: Non-Specific Ectopy: None EKG Interpretation: nl GERSON CT, nl QTc, negative axis. EKG Comparison: Other - c/w 08/29/2017. Now with Q-waves, V1 - V3 and deep T- waves. Discussed with Dr. Zelaya. Re-Evaluation - Re-Evaluation Second Eval Re-Evaluation Time: 16:05 Change: Improved Comment: No chest pain, VSS, feels well, troponin flat at 0.06. Pt and agree with discharge. Chest Pain Course/Dx - Course Course Of Treatment: MDM: A 62 y/o female s/p cath with stents s/p STEMI on 08/26 presents to ED c/o chest discomfort since 08/25/2017. Her Troponin level is 0.06 x 2 three hours apart. When trended troponins are decreasing, from peak 17.06 on 08/27/17. A CXR revealed no radiographic evidence for acute cardiopulmonary abnormality on this portable chest x-ray. An EKG revealed q waves and deep inverted T waves in anterior leads since STEMI EKG 08/26/17, no ST elevations or depressions. This EKG was discussed with Dr. Zelaya, cardiology inspector assemblies and installations. In the ED course, patient recieved Aspirin 324 chewed. We discussed care with Dr. Zelaya and he feels that this is not stent occlusion and with stable, non-rising troponins that pt may be DC'd with close follow up. Patient will be discharged with a diagnosis of chest pain. Pt's cardiac catheterization report was reviewed and pt is noted with extensive coronary atherosclerosis and stenoses that persist but are too small for revascularization in the apical LAD and OM1, but pt does have mid circumflex artery 80% narrowing that is potentially stenatable if required. Pt is advised and understands that she still has these coronary arterty stenoses, and will seek medical attention for any continuing or worsening chest discomfort. Hospitalists Dr. Martin and Prachi Bedoya, SHARON were also consulted for pt's care and they also discussed pt's care with Dr. Zelaya. Pt is advised to have definite follow up with PCP, Dr. Marx, in 2 days and follow up with cardiogist, Dr. Lee, in 2 days. Pt is pain free and ambulatory in no distress at the time of discharge with her . Pt medications reviewed this visit - Chest Pain Differential Diagnosis/HQI/PQRI: Acute NM, ACS, Angina, CHF - Diagnoses Provider Diagnoses: Chest pain, Coronary atherosclerosis, Multiple sclerosis - Provider Notifications Discussed Care Of Patient With: Don Zelaya Time Discussed With Above Provider: 13:25 Discharge - Sign-Out/Discharge Documenting (check all that apply): Patient Departure - DISCHARGE - Discharge Plan Condition: Stable Disposition: HOME Patient Education Materials: Chest Pain (ED) Referrals: Lucie Marx MD [Primary Care Provider] - 2 Days Marivel Lee MD [Medical Doctor] - 2 Days Additional Instructions: Return to the ER if any new or worsening symptoms. - Billing Disposition and Condition Condition: STABLE Disposition: Home
[2017-09-10 12:21] LABS: ABS Basophils 0.1 10^3/ul (0-0.2); ABS Eosinophils 0.1 10^3/ul (0-0.6); ABS Lymphocytes 1.6 10^3/ul (1.0-4.8); ABS Monocytes 0.4 10^3/ul (0-0.8); ABS Neutrophils 4.6 10^3/ul (1.5-7.7); ABS Nucleated RBC 0 10^3/ul; Eosinophil % 0.8 % (0-6); Hematocrit 37 % (35-47); Hemoglobin 12.8 g/dl (12.0-16.0); Lymphocyte % 23.8 % (25-47); Mean Corpuscular HGB Conc 35 g/dl (31-36); Mean Corpuscular Hemoglobin 31 pg (27-31); Mean Corpuscular Volume 90 fL (80-97); Mean Platelet Volume 8.8 um3 (7.4-10.4); Nucleated Red Blood Cells % 0; Platelet Count 466 10^3/ul (150-450); Red Blood Count 4.13 10^6/ul (4.00-5.40); Red Cell Distribution Width 13 % (10.5-15); White Blood Count 6.7 10^3/ul (3.5-10.8)
[2017-09-10 12:34] LABS: INR 0.94 (0.77-1.02)
[2017-09-10 12:36] LABS: EGFR Non-African American 85.9 (>60)
--- NOTE | 2017-09-10 13:13 | RAD ---
INDICATION: Chest pain. Status post dated August 26, 2017 COMPARISON: None. TECHNIQUE: Single AP portable view of the chest was obtained. FINDINGS: Image quality is compromised due to the relative inferiority of a portable chest x-ray. The heart and mediastinum exhibit normal size and contour. The lungs are grossly clear. There is no evidence of a large pleural effusion. Visualized bones are normal for the patient's age. IMPRESSION: No radiographic evidence for acute cardiopulmonary abnormality on this portable chest x-ray.
[2017-09-10 16:26] VITALS: BP 106/76
--- NOTE | 2017-09-10 19:36 | CONS ---
CC: Dr. Marx; Harsh Reyes MD [facility] MEDICINE CONSULTATION REPORT: DATE OF CONSULT: 09/10/17 PRIMARY CARE PHYSICIAN: Dr. Marx ATTENDING PHYSICIAN: Harsh Reyes MD (dictation provided by Prachi Bedoya NP). REASON FOR CONSULTATION: Question regarding need for admission. HISTORY OF PRESENT ILLNESS: Ms. Ji is a 62-year-old female with a past medical history of recent ST-elevation VA to the anterior wall on 08/26/17, status post stent placement to the LAD, was discharged on 08/30/17, who presents back to the hospital today with concern for chest discomfort. Ms. Ji states that on 08/26/17, she had severe pain in her neck radiating into her chest. She arrived here and was diagnosed with ST-elevation VA and immediately taken to the cardiac catheterization lab where she had stent placement to her LAD. The patient states that she was feeling well initially on return home; however, yesterday, she developed some chest discomfort. She describes it as "uncomfortable." She also describes it as a tightness. The pain was intermittent throughout the day yesterday. It was not associated with activity. It was on the left side of her chest. It did not radiate into her neck or down her arm. It was not associated with nausea, vomiting, or diaphoresis. Today, the pain continued and she was concerned that something might be wrong given her new stents and therefore presented to the emergency room for evaluation. She has had some intermittent chest discomfort while in the ED, but has said none at the time of my interview. The only other thing the patient notes is that she has had some diarrhea associated and attributed thus far to new dose of Lipitor. She wonders if the diarrhea is causing gastric distention and may explain her chest discomfort. In the emergency room, Ms. Ji had a troponin, which was 0.06, which is down from 17.06 on 08/27/17. She also had an EKG showing T wave inversions in the anterior leads consistent with her previous history of VA. PAST MEDICAL HISTORY: 1. Anterior ST-elevation VA in July 2017 with stent to LAD. 2. 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 3. History of multiple sclerosis. 4. Hypothyroidism. 5. GERD. MEDICATIONS: Outpatient are: 1. Interferon 30 mcg IM weekly. 2. Aspirin 81 mg p.o. daily. 3. Esomeprazole 20 mg p.o. daily. 4. Cosopt 1 drop both eyes b.i.d. 5. Atorvastatin 80 mg p.o. daily. 6. Ticagrelor 90 mg p.o. b.i.d. 7. Nitroglycerin 0.4 mg sublingual q.5 minutes p.r.n. 8. Metoprolol succinate 100 mg p.o. daily. 9. Lisinopril 10 mg p.o. daily. 10. Levothyroxine 25 mcg p.o. daily. ALLERGIES: No known drug allergies. FAMILY HISTORY: The patient reports her mother had hypertension and is alive at age 92. Dad had a heart attack with angioplasty, in his 60s. SOCIAL HISTORY: The patient is a former smoker. She quit in 1988. She drinks alcohol very occasionally. No report of drug use. She states that her , Kaleb, will be the healthcare proxy. REVIEW OF SYSTEMS: A 14-point review of systems was completed with Ms. Ji and all those not mentioned above were negative. PHYSICAL EXAMINATION: Vital Signs: Temperature 96.9, pulse rate 60, respiratory rate 18, O2 saturation 98% on room air, blood pressure 106/76. General: Ms. Ji is sitting up in the bed, she is in no acute distress, with at the bedside. Neuro: She is alert. She is oriented x3. She moves all extremities equally. There is no facial asymmetry or focal weakness. Extraocular movements are intact. Heart: S1, S2. No murmur, rub, or gallop and regular. Lungs are clear to auscultation bilaterally with no accessory muscle use and good aeration. Abdomen is soft, nontender. Bowel sounds are positive x4. Extremities: No cyanosis or edema. Skin is intact. LABORATORY DATA/DIAGNOSTIC STUDIES: WBC 6.7, hemoglobin 12.8, hematocrit 37, platelet count 466. INR 0.94. D-dimer less than 200. Sodium 136, potassium 4.1, chloride 108, serum bicarbonate 18, BUN 7, creatinine 0.69, glucose 148. Lactic acid 1.3. Troponin 0.06. Repeat troponin 0.06. BNP 329. Chest x-ray shows "no radiographic evidence for acute cardiopulmonary abnormality" on this portable chest x-ray. The EKG shows T wave inversions in the anterior leads of V2, V3, V4, V5, and V6 as well as 2 and aVF and aVL. ASSESSMENT: Ms. Ji is a 62-year-old female with past medical history of recent ST elevation VA to the anterior wall with stent to the LAD just in late July 2017, who returns today with concern for chest discomfort. In the emergency room, she has had some intermittent chest discomfort, not associated with activity. She has had 2 troponins, which were stable at 0.06 and showed improvement as expected since her previous recent VA. She also has T wave inversions with expected changes, again noted after that recent VA. This case was reviewed extensively with Dr. Zelaya from cardiology who reviewed the cardiac catheterization, EKG, and the report of the patient's symptoms. He indicates that the patient is medically stable for discharge to home and does not warrant any further workup here in the ED given her negative workup thus far. The patient has some mild diffuse disease that is not amenable to stent placement, which could the source of her pain. Also, it could be indigestion as describes herself. Regardless, her workup is negative and she is safe for discharge to continue followup outpatient very closely with Cardiology. I also reviewed the case closely with Dr. Reyes who agreed based on the recommendations from Dr. eZlaya as well. Ms. Ji is medically stable. This has been reviewed with Dr. Lopez, who will be discharging her. TIME SPENT: Approximately 60 minutes were spent in the consultation of this patient, more than half the time was spent with the patient at the bedside reviewing the events leading up to this presentation to the ED, performing the physical examination, and reviewing the plan of care for discharge. PRACHI BEDOYA NP [id number]/CPS #: [id number] ROMI
== END 2017-09-10 16:31 | disposition home or self-care (01) ==
LOC: ED 11:45
DX: R07.89 Other chest pain (principal); I25.10 Atherosclerotic heart disease of native coronary artery without angina pectoris; G35 Multiple sclerosis; I25.2 Old myocardial infarction; I10 Essential (primary) hypertension; K21.9 Gastro-esophageal reflux disease without esophagitis; Z95.5 Presence of coronary angioplasty implant and graft; Z87.891 Personal history of nicotine dependence
CPT/HCPCS: 36415; 71045; 80053; 82550; 82553; 83605; 83735; 83880; 84484; 85025; 85379; 85610; 85730; 93005; 99283; A9270-GY

== ENCOUNTER → 2017-11-03 11:04 | Emergency (ER) | payer OTHER ==
--- NOTE | 2017-11-03 11:27 | ED ---
HPI Chest Pain - HPI Summary HPI Summary: This patient is a 62 year old F presenting to [facility] accompanied by her with a chief complaint of left sided CP that began last night. Pt states the pain radiates into left neck and arm. Symptoms alleviated by NTG, which she took at home. PMHX of [place] on 08/15 and had a stent placed, since this she has had waxing and waning CP since. The patient rates the pain 2/10 in severity. Patient reports chest pressure, back pain, and left arm heaviness. Patient denies SOB, n/v, diaphoresis, and syncope. Pt took her shot for her MS last night which always make her feel ill. Pt states that the pain is just getting to her and she wants it to stop. - History of Current Complaint Chief Complaint: EDChestPainROMI Time Seen by Provider: 11/03/17 11:17 Hx Obtained From: Patient Onset/Duration: Started Days Ago - 1, Still Present Timing: Constant Initial Severity: Mild Current Severity: Mild Pain Intensity: 2 Pain Scale Used: 0-10 Numeric Chest Pain Location: Diffuse Chest Pain Radiates: Yes Chest Pain Radiates To:: Back, Arm - l, Neck Character: Pressure/Squeezing Alleviating Factor(s): NTG 123 Associated Signs and Symptoms: Positive: Negative - SOB, n/v, diaphoresis, and syncope., Other: - chest pressure, back pain, and left arm heaviness. - Additional Pertinent History Primary Care Physician: VIN - Allergy/Home Medications Allergies/Adverse Reactions: Allergies Allergy/AdvReac Type Severity Reaction Status Date / Time No Known Allergies Allergy Verified 09/10/17 11:50 Home Medications: Home Medications Bimatoprost 0.01% OPHTH (NF) [Lumigan 0.01% OPHTH (NF)] 1 drop BOTH EYES QPM 08/15 [History Confirmed 11/03/17] Metoprolol Succinate XL TAB* [Toprol XL TAB*] 100 mg PO DAILY 11/03/17 [History Confirmed 11/03/17] PMH/Surg Hx/FS Hx/Imm Hx Endocrine/Hematology History: Reports: Hx Thyroid Disease - HYPOTHYROID Denies: Hx Anticoagulant Therapy, Hx Blood Disorders, Hx Blood Transfusions, Hx Bone Marrow Disease, Hx Diabetes, Hx Systemic Lupus Erythematosus, Hx Sickle Cell Disease, Hx Anemia, Hx Unexplained Bleeding, Other Endocrine/Hematological Disorders Cardiovascular History: Reports: Hx Coronary Artery Disease, Hx Myocardial Infarction - STEMI 08/26/17 with stents, [facility] Denies: Hx Hypertension, Hx Pacemaker/ICD Respiratory History: Denies: Hx Asthma History: Denies: Hx Renal Disease Sensory History: Reports: Hx Contacts or Glasses Denies: Hx Cataracts, Hx Eye Injury, Hx Eye Prosthesis, Hx Glaucoma, Hx Legally Blind, Hx Macular Degeneration, Hx Vision Problem, Hx Deafness, Hx Hearing Aid, Hx Hearing Problem, Other Sensory Impairments Opthamlomology History: Reports: Hx Contacts or Glasses Denies: Hx Cataracts, Hx Eye Injury, Hx Eye Prosthesis, Hx Glaucoma, Hx Legally Blind, Hx Macular Degeneration, Hx Vision Problem, Other Sensory Impairments Neurological History: Reports: Other Neuro Impairments/Disorders - multiple sclerosis Psychiatric History: Denies: Hx Panic Disorder - Surgical History Surgery Procedure, Year, and Place: csection,DENTAL IMPLANT Hx Anesthesia Reactions: No Infectious Disease History: No Infectious Disease History: Denies: Traveled Outside the [place] in Last 30 Days - Family History Known Family History: Positive: Hypertension, Other - Angioplasty Negative: Cardiac Disease - Social History Lives: With Family Alcohol Use: None Substance Use Type: Reports: None Smoking Status (MU): Former Smoker Type: Cigarettes Have You Smoked in the Last Year: No Review of Systems Positive: Chest Pain Negative: Shortness Of Breath Negative: Vomiting, Nausea Positive: Other - back pain, and left arm heaviness. Negative: Syncope All Other Systems Reviewed And Are Negative: Yes Physical Exam - Summary Physical Exam Summary: Appearance: Well-appearing, Well-nourished, lying in bed comfortably Skin: Warm, dry, no obvious rash Eyes: sclera anicteric, no conjunctival pallor ENT: mucous membranes moist, pharynx appears normal Neck: Supple, nontender Respiratory: Clear to auscultation, no signs of respiratory distress Cardiovascular: Normal S1, S2. No murmurs. Normal distal pulses in tibial and radial bilaterally. Abdomen: Soft, nontender, normal active bowel sounds present Musculoskeletal: Normal, Strength/ROM Intact Neurological: A&Ox3, awake and alert, mentation is normal, speech is fluent and appropriate Psychiatric: affect is normal, does not appear anxious or depressed Triage Information Reviewed: Yes Vital Signs On Initial Exam: Initial Vitals Temp Pulse Resp BP Pulse Ox 97.9 F 67 17 112/71 98 11/03/17 11:08 11/03/17 11:08 11/03/17 11:08 11/03/17 11:08 11/03/17 11:08 Vital Signs Reviewed: Yes Diagnostics - Vital Signs Vital Signs Temp Pulse Resp BP Pulse Ox 11/03/17 11:08 97.9 F 67 17 112/71 98 - Laboratory Result Diagrams: 11/03/17 11:37 11/03/17 11:37 Lab Statement: Any lab studies that have been ordered have been reviewed, and results considered in the medical decision making process. - Radiology CXR Radiology Interpretation Completed By: Radiologist - NO ACTIVE CARDIOPULMONARY DISEASE IS NOTED. ED physician has reviewed this radiology report. - EKG 11:21 Cardiac Rate: Bradycardia EKG Rhythm: Sinus Bradycardia - at 55 BPM, P waves, anterior Q waves, and T waves are within normal limits, T waves and intervals are normal, no ischemic changes. This is a normal EKG Re-Evaluation - Re-Evaluation First Eval Re-Evaluation Time: 15:41 Change: Unchanged Comment: I discussed test results and discharge with the patient. Chest Pain Course/Dx - Course Assessment/Plan: Pt presents with CP which has been waxing and waning for months. An EKG reveals sinus bradycardia at 55 BPM, P waves, anterior Q waves, and T waves are within normal limits, T waves and intervals are normal, no ischemic changes. This is a normal EKG. . CXR reveals, per radiologist, NO ACTIVE CARDIOPULMONARY DISEASE IS NOTED. Blood work obtained. Patient will be discharged and follow up from PCP. The patient is agreeable with this plan. - Diagnoses Provider Diagnoses: Chest pain Discharge - Sign-Out/Discharge Documenting (check all that apply): Patient Departure - Discharge Plan Condition: Good Disposition: HOME Patient Education Materials: Chest Pain (ED) Referrals: Lucie Marx MD [Primary Care Provider] - - Billing Disposition and Condition Condition: GOOD Disposition: Home - Attestation Statements Document Initiated by Scribe: Yes Documenting Scribe: Kostas Interiano Provider For Whom Scribe is Documenting (Include Credential): Jeffry Bruner MD Scribe Attestation: Kostas Contreras , scribed for Jeffry Bruner MD on 11/04/17 at 0839. Scribe Documentation Reviewed: Yes Provider Attestation: The documentation as recorded by the Kostas delgadillo accurately reflects the service I personally performed and the decisions made by me, Jeffry Bruner MD
[2017-11-03 11:46] LABS: ABS Basophils 0.1 10^3/ul (0-0.2); ABS Eosinophils 0.1 10^3/ul (0-0.6); ABS Monocytes 0.6 10^3/ul (0-0.8); ABS Neutrophils 2.8 10^3/ul (1.5-7.7); ABS Nucleated RBC 0 10^3/ul; Eosinophil % 2.4 % (0-6); Hematocrit 38 % (35-47); Hemoglobin 12.9 g/dl (12.0-16.0); Lymphocyte % 21.8 % (25-47); Mean Corpuscular HGB Conc 34 g/dl (31-36); Mean Corpuscular Hemoglobin 31 pg (27-31); Mean Corpuscular Volume 91 fL (80-97); Mean Platelet Volume 9.1 um3 (7.4-10.4); Nucleated Red Blood Cells % 0; Platelet Count 276 10^3/ul (150-450); Red Blood Count 4.16 10^6/ul (4.00-5.40); Red Cell Distribution Width 14 % (10.5-15); White Blood Count 4.6 10^3/ul (3.5-10.8)
--- NOTE | 2017-11-03 11:51 | RAD ---
Indication: Chest pain. Single frontal view of the chest performed at 1133 hours was reviewed. Comparison is made with previous exam dated September 10, 2017. No mediastinal shift is noted. Heart is of normal size and configuration. Lung mata appear clear. IMPRESSION: NO ACTIVE CARDIOPULMONARY DISEASE IS NOTED.
[2017-11-03 12:17] LABS: EGFR Non-African American 67.5 (>60)
--- OUTSIDE RECORDS SUMMARY | 2017-11-03 12:22 | XMS REPORT | Continuity of Care Document ---
:1955 External Reference #:[id number] Author Name Corina Soto O.D. Address [address] [place] [address] Care Team Providers Name Role Phone Lucie Marx M.D. Primary Care Physician Unavailable Payers Type Date Identification Numbers Payment Provider Subscriber Policy Number: [id number] [employer] P[employer]/Pos[employer]Epo/Nap Griselda Ji Group Number: [id number] [address] PayID: [id number] [place] [address] Advance Directives Description No Information Available Problems Date Description Provider Status Onset: 08/20/2014 Gastroesophageal reflux disease Corina Soto O.D. Active Onset: 08/20/2014 Hypothyroidism Corina Soto O.D. Active Onset: 08/20/2014 Multiple sclerosis Corina Soto O.D. Active Onset: 08/20/2014 Primary open angle glaucoma Corina Soto O.D. Active Onset: 08/20/2014 Postinflammatory optic atrophy Corina Soto O.D. Active Onset: 08/20/2014 Mild / Early Stage Glaucoma Corina Soto O.D. Active Onset: 02/18/2015 Other optic atrophy, left eye Corina Soto O.D. Active Onset: 08/20/2015 Optic atrophy Corina Soto O.D. Active Onset: 02/26/2016 Hypermetropia Corina Soto O.D. Active Onset: 02/26/2016 Presbyopia Corina Soto O.D. Active Onset: 02/26/2016 Regular astigmatism Corina Soto O.D. Active Family History Date Family Member(s) Problem(s) Comments Father No Current Problems Mother Glaucoma Social History Type Date Description Comments Sex Unknown Marital Status Legal Status: Occupation [employer] Work Status Full-Time Employment ETOH Use Denies alcohol use Tobacco Use Start: Unknown Patient has never smoked Recreational Drug Use Denies Drug Use Smoking Status Reviewed: 11/02/17 Patient has never smoked Allergies, Adverse Reactions, Alerts Description No Known Drug Allergies Medications Medication Date Status Form Strength Qnty SIG Indications Ordering Provider Dorzolamide 10/20/ Active Solution 22.3-6.8mg 30unit Instill 1 Corina Posada HCL/Timolol 2017 /ml s Drop In [place], Maleate Each Eye O.D. Twice Daily Lumigan 08/19/ Active Solution 0.01% 7.5uni Instill Corina Posada 2014 ts One Drop [place], In Both O.D. Eyes Every Night Synthroid / Active Tablets 25mcg Issayanbradley, 0000 Lucie Guzman Nexium / Active Capsules 40mg Galyanova, 0000 DR Lucie Guzman Avonex Pen / Active Kit 30mcg/0.5M Gamal, 0000 Enrico Maldonado M.D. Fosamax / Active Tablets 70mg every Unknown 0000 week Brilinta / Active Tablets 90mg take 1 Unknown 0000 tablet by mouth twice a day Lisinopril / Active Tablets 10mg take 1 Unknown 0000 tablet by mouth once daily Metoprolol / Active Tablets ER 100mg take 1 Unknown Succinate ER 0000 24HR tablet by mouth once daily Nitroglycerin / Active Tablets 0.3mg Unknown 0000 Sub Cosopt 10/16/ Hx Solution 22.3-6.8mg 30ml 1 drop Corina Posada 2014 - /ml both eyes [place], 10/20/ twice a O.D. 2018 day Chlorhexidine / Hx Solution 0.12% Unknown Gluconate 0000 - 2014 Immunizations Description No Information Available Vital Signs Description No Information Available Results Description No Information Available Procedures Date Code Description Status 04/14/2017 05832 Scanning Computerized Ophthalmic Diagnostic Imag Posterior Completed Seg On 04/14/2017 50923 Visual Field Exam Extended Completed 04/14/2017 17213 Est Patient Intermediate Exam Completed 10/07/2016 41277 Visual Field Exam Extended Completed 10/07/2016 50396 Est Patient Intermediate Exam Completed 08/26/2016 65413 Visual Field Exam Extended Completed 08/26/2016 30002 Est Patient Intermediate Exam Completed 02/26/2016 37685 Scanning Computerized Ophthalmic Diagnostic Imag Posterior Completed Seg On 02/26/2016 62126 Determination Of Refractive State Completed 02/26/2016 13197 Est Patient Comprehensive Exam Completed 08/20/2015 48031 Visual Field Exam Extended Completed 08/20/2015 35267 Est Patient Intermediate Exam Completed 02/18/2015 03111 Est Patient Intermediate Exam Completed 02/18/2015 09162 Scanning Computerized Ophthalmic Diagnostic Imag Posterior Completed Seg On 08/20/2014 11303 Visual Field Exam Extended Completed 08/20/2014 08619 Est Patient Intermediate Exam Completed 02/14/2014 38984 Fundus Photography With Interpretation And Report Completed 02/14/2014 45453 Est Patient Intermediate Exam Completed 02/01/2014 55923 Visual Field Exam Extended Completed 02/19/2013 70946 Visual Field Exam Extended Completed 06/14/2012 99346 Trabeculoplasty By Laser Surgery Completed 05/24/2012 88265 Visual Field Exam Extended Completed 05/17/2011 90205 Visual Field Exam Extended Completed 05/03/2011 96516 Scanning Computerized Ophthalmic Diagnostic Imag Posterior Completed Seg On 05/03/2011 58208 Determination Of Refractive State Completed 05/03/2011 98994 Est Patient Comprehensive Exam Completed Encounters Type Date Location Provider Dx Diagnosis Office Visit 08/20/2013 [facility] [place], 365.11 Primary Open Angle 10:00a rigoberto ORDOÑEZ M.D. Glaucoma 365.71 Mild / Early Stage Glaucoma Office Visit 02/19/2013 10:00a [facility] [place], 365.11 Primary Open rigoberto ORDOÑEZ M.D. Angle Glaucoma 365.72 Moderate Glaucoma Office Visit 01/17/2013 9:00a [facility] [place], 365.11 Primary Open rigoberto ORDOÑEZ M.D. Angle Glaucoma 365.72 Moderate Glaucoma Office Visit 07/17/2012 9:00a [facility] [place], 365.11 Primary Open rigoberto ORDOÑEZ M.D. Angle Glaucoma 365.71 Mild / Early Stage Glaucoma Office Visit 05/24/2012 9:45a [facility] [place], 365.11 Primary Open rigoberto ORDOÑEZ M.D. Angle Glaucoma 365.72 Moderate Glaucoma Office Visit 11/17/2011 9:00a [facility] [place], 365.11 Primary Open rigoberto ORDOÑEZ M.D. Angle Glaucoma 365.72 Moderate Glaucoma Office Visit 05/17/2011 11:00a [facility] [place], 365.11 Primary Open rigoberto ORDOÑEZ M.D. Angle Glaucoma 365.71 Mild / Early Stage Glaucoma Plan of Treatment Future Appointment(s):05/02/2018 10:15 am - Corina S[facility] O.D. [facility]/2017 - Corina Soto O.D.H40.1132 Primary open-angle glaucoma, bilateral, moderate stageComments:Your glaucoma is stable at this time.Your eye pressure is within an acceptable range, and your testing does not show any Glaucoma related changes at this time. Please continue your treatment.Follow up:6 months IOP check/VF 24-2H47.292 Other optic atrophy, left eyeH52.03 Hypermetropia, bilateralComments:You have Hyperopia, or far sightedness, I have given you a prescription for glasses.H52.4 PresbyopiaComments:Smoking can increase the risk of developing or worsening any eye related disease, as well as affect your overall health. If you are a smoker , we strongly recommend that you quit.If you are not a smoker, we strongly recommend that you do not start. You have presbyopia. This is when the lens in your eye loses the ability to change focus, and happens as we age. A pair of reading glasses will help you see up close.H52.223 Regular astigmatism, bilateralComments:Astigmatism is a common vision condition that happens when a person's cornea is not symmetrical. Dr. Soto has given you a prescription to correct for this.
[2017-11-03 15:36] VITALS: BP 119/77
== END | disposition home or self-care (01) ==
LOC: ED 11:04
DX: R07.89 Other chest pain (principal); R00.1 Bradycardia, unspecified; M54.9 Dorsalgia, unspecified; M79.602 Pain in left arm; Z87.891 Personal history of nicotine dependence
CPT/HCPCS: 36415; 71045; 80053; 84484; 85025; 85652; 86140; 93005; 99283